=== PATIENT | male | born 1995 | race Hispanic/Latino ===

== ENCOUNTER 2020-04-23 21:12 | Emergency (ER) | payer SELFPAY ==
[2020-04-23] MEDS ORDERED: Ketorolac Tromethamine 30 MG/ML VIAL ONE (22:55)
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
== END 2020-04-24 00:30 | disposition home or self-care (01) ==
LOC: ERS 21:12
DX: S39.012A Strain of muscle, fascia and tendon of lower back, initial encounter (principal); V89.2XXA Person injured in unspecified motor-vehicle accident, traffic, initial encounter
CPT/HCPCS: 72220; 96372; J1885

== ENCOUNTER 2022-12-27 12:39 | Emergency (ER) | payer OTHER, SELFPAY ==
[2022-12-27] MEDS ORDERED: Cyclobenzaprine 10 MG TAB ONE (13:44)
== END 2022-12-27 15:22 | disposition home or self-care (01) ==
LOC: ERS 12:39
DX: S39.012A Strain of muscle, fascia and tendon of lower back, initial encounter (principal); R07.81 Pleurodynia; V89.2XXA Person injured in unspecified motor-vehicle accident, traffic, initial encounter
CPT/HCPCS: 72100